=== PATIENT | female | born 1985 | race Caucasian/White ===

== ENCOUNTER 2021-07-13 10:18 | Outpatient (REF) | payer MEDICAID, SELFPAY ==
--- NOTE | ~2021-07-13 | XR_ITS ---
EXAMINATION: XR ANKLE, RIGHT CLINICAL INFORMATION: Pain COMPARISON: None TECHNIQUE: AP, lateral, and mortise views of the right ankle. FINDINGS: The bones and soft tissues are normal. No fracture. Alignment is anatomic. Joint spaces are maintained. No joint effusion. XR/XR ankle RT min 3V IMPRESSION: Unremarkable right ankle.
== END 2021-07-13 10:19 | disposition home or self-care (01) ==
LOC: HO.HOSX 10:18
PROVIDERS: Visit Provider Physician Assistant
DX: S90.01XA Contusion of right ankle, initial encounter (principal)
CPT/HCPCS: 73610; 99202

== ENCOUNTER 2021-08-02 17:52 | Outpatient (REF) | payer OTHER, MEDICAID, SELFPAY ==
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
== END 2021-08-02 17:53 | disposition home or self-care (01) ==
LOC: HO.MRI 17:52
PROVIDERS: Visit Provider Physician Assistant
DX: S90.01XA Contusion of right ankle, initial encounter (principal)
CPT/HCPCS: 73721

== ENCOUNTER 2021-11-29 11:54 | Emergency (ER) | payer MEDICAID, SELFPAY ==
[2021-11-29 13:01] VITALS: BP 127/73; PULSE 86; RESP 18; TEMP 37; O2SAT 98; BMI 24.7
--- NOTE | 2021-11-29 15:39 | ED_ITS ---
HPI - Wound/Laceration General Chief Complaint: Wound/Laceration Stated Complaint: Eyebrow lac Time Seen by Provider: 11/29/21 15:39 Source: patient Mode of arrival: ambulatory Limitations: no limitations History of Present Illness HPI narrative: patient stood up and cut her right eyebrow on a cabinet Onset (ago): hour(s) Location: face Related Data Home Medications Medication Instructions Recorded Confirmed No Known Home Meds 07/13/21 07/13/21 Allergies Allergy/AdvReac Type Severity Reaction Status Date / Time No Known Allergies Allergy Unverified 01/20/20 19:36 [No Known Allergies*] Review of Systems Constitutional: Constitutional: Reports no additional constitutional complaints Eyes: Eyes: Reports no additional eye complaints ENT: Denies dizziness Cardiovascular: Cardiovascular: Reports no additional cardiovascular complaints Respiratory: Respiratory: Reports as per HPI Gastrointestinal: Gastrointestinal: Reports no additional gastrointestinal complaints Genitourinary: Genitourinary: Reports no additional female genitourinary complaints Musculoskeletal: Musculoskeletal: Reports no additional musculoskeletal complaints Integumentary/Breasts: Skin/Breast: Denies rash Neurologic: Reports system reviewed and no additional complaints, except as documented, Denies dizziness and Denies Sensory deficit (Neuro) Psychiatric: Psychiatric: Denies anxiety Physical Exam Vital Signs: Vital Signs: Last Vital Signs Temp 98.6 F 11/29/21 13:01 Pulse 86 11/29/21 13:01 Resp 18 11/29/21 13:01 BP 127/73 11/29/21 13:01 Pulse Ox 98 11/29/21 13:01 O2 Del Method 11/29/21 13:01 BMI result Body Mass Index 24.7 Const: General: healthy appearing Nutritional Appearance: average body hab itus Orientation/consciousness: oriented to person and patient oriented x3 Limitations: no limitations HEENT: Head: Yes normal to inspection Ears: external ears normal General nose exam: Normal external nose present Mouth: Normal oral and palatal mucosa present and oropharynx normal Throat: Yes posterior oropharynx normal Eyes: General: appearance normal, both eyes and all related structures Neck: Other: supple Neck: Yes normal visual inspection Chest: Chest palpation & inspection: normal inspection of the chest Resp: Auscultation: clear to auscultation bilaterally Cardio: Jugular venous distension: no JVD Rate: regular rate Rhythm: regular rhythm Heart sounds: S1 normal heart sound present and S2 normal heart sound present GI: Inspection: Yes normal to inspection Palpation (GI): Soft to palpation, nontender and No hepatosplenomegaly present Auscultation: normal bowel sounds : General: Yes no CVA tenderness Back/Spine/Pelvis: Back: no CVA tenderness Skin: Other: right eyebrow with 2cm laceration Neuro: General: oriented to person and patient oriented x3 Cranial nerves: Yes CN's II-XII intact bilaterally Motor exam (neuro): 5/5 motor strength present throughout Sensory Exam: No Sensory deficit (Neuro) Extrem: General: Yes normal to inspection Psych: Appearance: grossly normal Procedures Procedure Narrative Procedure Narrative: right eyebrow dermabonded Discharge Plan Discharge Clinical Impression: Laceration Patient Disposition: Home, Self-Care Additional Instructions: the dermabond with peel off when the wound is healed. Prescriptions: No Action No Known Home Meds Referrals: [facility] [Primary Care Provider] - 10 days
== END 2021-11-29 16:27 | disposition home or self-care (01) ==
LOC: HO.ED 16:21
PROVIDERS: Emergency Provider Emergency Medicine
DX: S01.111A Laceration without foreign body of right eyelid and periocular area, initial encounter (principal); Y28.9XXA Contact with unspecified sharp object, undetermined intent, initial encounter; Y93.9 Activity, unspecified; Y92.9 Unspecified place or not applicable; Y99.9 Unspecified external cause status
CPT/HCPCS: 12011; 99281; 99283

== ENCOUNTER 2022-08-26 16:55 | Outpatient (REF) | payer MEDICAID, SELFPAY ==
--- NOTE | ~2022-08-26 | XR_ITS ---
EXAMINATION: XR ANKLE, RIGHT CLINICAL INFORMATION: Chronic ankle pain COMPARISON: Ankle radiographs 07/13/2021 TECHNIQUE: AP, lateral, and mortise views of the right ankle. FINDINGS: No acute fracture or dislocation. Joint spaces are maintained. Soft tissues are unremarkable. No joint effusion. XR/XR ankle RT min 3V IMPRESSION: No acute osseous abnormality.
--- NOTE | ~2022-08-26 | XR_ITS ---
EXAMINATION: XR SHOULDER, LEFT CLINICAL INFORMATION: Reason for Exam SHOULDER PAIN COMPARISON: None TECHNIQUE: Four views of the shoulder. FINDINGS: No acute fracture or dislocation. 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 Minimal degenerative changes of the acromioclavicular joint with degenerative spurring. Glenohumeral joint space is maintained. Soft tissues are unremarkable. XR/XR shoulder LT min 2V IMPRESSION: 1. 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 2. Minimal degenerative changes of the acromioclavicular joint with degenerative spurring.
== END 2022-08-26 16:56 | disposition home or self-care (01) ==
LOC: HO.XRAY 16:55
PROVIDERS: Visit Provider Emergency Medicine
DX: M25.512 Pain in left shoulder (principal); M25.571 Pain in right ankle and joints of right foot
CPT/HCPCS: 73030; 73610

== ENCOUNTER → 2022-10-10 13:37 | Outpatient (BNVA) | payer MEDICAID, SELFPAY | PROVIDERS: Visit Provider Orthopaedic Surgery | DX: M75.52 Bursitis of left shoulder (principal) | CPT/HCPCS: 20610; 99202; J1100 ==

== ENCOUNTER 2022-11-19 10:16 | Outpatient (REF) | payer MEDICAID, SELFPAY ==
[2022-11-19 11:38] LABS: MANUAL DIFF FLAG NO
[2022-11-19 11:55] LABS: Basophils Percent Auto 0.5 % (0-2); Eosinophils Percent Auto 0.5 % (0-4); Hematocrit 43.2 % (37.0-47.0); Hemoglobin 14.8 g/dl (12.0-16.0); Imm Gran Abs Auto 0.03 X10*3/uL (0.00-0.03); Imm Gran Pct Auto 0.4 % (0.0-0.4); Lymphocytes Absolute Auto 2.7 X10*3/uL (1.2-4.9); Lymphocytes Percent Auto 32.5 % (20-40); Mean Corpuscular HGB Conc 34.3 g/dl (31.0-35.0); Mean Corpuscular Hemoglobin 29.8 pg (27.0-33.0); Mean Corpuscular Volume 86.9 fL (80.0-98.0); Mean Platelet Volume 9.7 fL (9.4-12.3); Monocytes Absolute Auto 0.4 X10*3/uL (0.1-1.2); Monocytes Percent Auto 4.4 % (2-11); Neutrophils Absolute Auto 5.2 x10*3/uL (2.0-8.3); Neutrophils Percent Auto 61.7 % (45-73); Platelet Count 301 X10*3/uL (160-400); Red Blood Count 4.97 X10*6/uL (4.20-5.50); Red Cell Distribution Width 11.4 % (11.0-16.0); White Blood Count 8.4 X10*3/uL (4.8-10.8)
[2022-11-19 12:34] LABS: Erythrocyte Sedimentation Rate 5 MM/HR (0-20)
[2022-11-19 12:54] LABS: Alanine Aminotransferase 8 U/L (0-31); Albumin Level 4.5 g/dL (3.5-5.0); Alkaline Phosphatase 43 U/L (39-117); Anion Gap 12 (12-20); Aspartate Amino Transferase 12 U/L (5-31); Bilirubin Direct 0.3 mg/dL (0.0-0.5); Bilirubin Total 0.8 mg/dL (0.0-1.0); Blood Urea Nitrogen 15 mg/dL (9-16); C Reactive Protein < 0.10 mg/dL (< or = 0.50); Calcium 9.8 mg/dL (8.4-10.2); Carbon Dioxide 27 mmol/L (22-29); Chloride 104 mmol/L (96-108); Cholesterol 213 mg/dL; Estimated Glomerular Filt Rate > 60; Glucose Random 82 mg/dL (60-115); HDL Cholesterol 64 mg/dL; LDL Cholesterol Calculated 130 mg/dl; Potassium 3.8 mmol/L (3.3-5.1); Sodium 139 mmol/L (135-145); Total Protein 7.8 g/dL (6.5-8.0); Triglycerides 95 mg/dL
[2022-11-19 13:05] LABS: HIV AB/AG Nonreactive (Nonreactive); HIV Num 1 0.07 S/CO (0.00-0.99)
[2022-11-19 13:08] LABS: ~HepC Num1 0.09 S/CO (0.00-0.79); ~Hepatitis C Antibody Nonreactive (Nonreactive)
[2022-11-19 13:11] LABS: TSH reflex Free T4 0.57 uIU/mL (0.32-4.0)
[2022-11-19 13:12] LABS: Rheumatoid Factor < 13.0 IU/mL (<15.0)
[2022-11-19 13:24] LABS: Vitamin B12 461 pg/mL (200-900)
[2022-11-21 17:53] LABS: Homocysteine 10.1 umol/L (<10.4)
[2022-11-24 16:42] LABS: Methylmalonic Acid 201 nmol/L (87-318)
[2022-11-25 12:08] LABS: Anti Nuclear Antibody Screen NEGATIVE (NEGATIVE)
== END 2022-11-19 10:17 | disposition home or self-care (01) ==
LOC: HO.HHCL 10:16
PROVIDERS: Visit Provider Internal Medicine
DX: Z11.4 Encounter for screening for human immunodeficiency virus [HIV] (principal); R20.0 Anesthesia of skin; R20.2 Paresthesia of skin; R21 Rash and other nonspecific skin eruption; R53.82 Chronic fatigue, unspecified; M25.50 Pain in unspecified joint
CPT/HCPCS: 36415; 80048; 80061; 80076; 82607; 82746; 83090; 83921; 84443; 85025; 85652; 86038; 86140; 86431; 86803; 87389

== ENCOUNTER 2023-12-29 13:09 | Outpatient (REF) | payer MEDICAID, SELFPAY ==
--- NOTE | ~2023-12-29 | XR_ITS ---
EXAMINATION: XR ANKLE, LEFT CLINICAL INFORMATION: Left ankle pain. COMPARISON: None available. TECHNIQUE: AP, lateral, and mortise views of the left ankle. FINDINGS: No fracture. Alignment is anatomic. No erosions. Joint spaces are maintained. Soft tissues are normal. XR/XR ankle LT min 3V IMPRESSION: Unremarkable examination. Electronically signed by: Jose Gayle MD 01/02/2024 10:49 AM EDT
== END 2023-12-29 13:10 | disposition home or self-care (01) ==
LOC: HO.HHCX 13:09
PROVIDERS: Visit Provider General Practice
DX: M25.572 Pain in left ankle and joints of left foot (principal)
CPT/HCPCS: 73610

== ENCOUNTER 2024-03-30 13:58 | Outpatient (REF) | payer MEDICAID, SELFPAY ==
--- NOTE | ~2024-03-30 | XR_ITS ---
EXAMINATION: XR SHOULDER, LEFT CLINICAL INFORMATION: ongoing shoulder pain COMPARISON: 08/26/2022 TECHNIQUE: AP external rotation, Grashey, scapular Y, and axillary views of the left shoulder. FINDINGS: No fracture or malalignment. Supraspinatus and infraspinatus calcific tendinitis, similar to previous. The acromioclavicular joint is normal. XR/XR shoulder LT min 2V IMPRESSION: Supraspinatus and infraspinatus calcific tendinitis, similar to previous. Electronically signed by: Erwin Iniguez MD 03/31/2024 02:39 PM GUIDO
== END 2024-03-30 13:59 | disposition home or self-care (01) ==
LOC: HO.HHCX 13:58
PROVIDERS: Visit Provider Nurse Practitioner
DX: M25.512 Pain in left shoulder (principal); G89.29 Other chronic pain
CPT/HCPCS: 73030

== ENCOUNTER 2024-06-28 13:55 | Outpatient (REF) | payer MEDICAID, SELFPAY ==
--- OUTSIDE RECORDS SUMMARY | 2024-06-28 16:01 | XMS_ITS | Clinical Summary ---
Author Organization [facility] Address [id number] [place] [id number] Care Team Providers Care Government Affairs Specialist Name Role Phone Unavailable Primary Care Provider Unavailabl e Social History Tobacco Use Types Packs/Day Years Used Date Smoking Tobacco: Never Assessed Comments Unknown Sex and Gender Information Value Date Recorded Sex Assigned at Not on file Legal Sex Female 5:20 AM EST Gender Identity Not on file Sexual Orientation Not on file Plan of Treatment Health Maintenance Due Date Last Done Comments DTaP,Tdap,and Td Vaccines (1 - Tdap) 2004 Hepatitis B Vaccines (1 of 3 - 19+ 3-dose series) 2004 Cervical Cancer Screening: P ap Smear 2006 Depression Screening 04/07/2022 HIV Screening 04/07/2022 Hepatitis C Screening 04/07/2022 Social Influencers of Health Screening 04/07/2022 COVID-19 Vaccine (2023-2 5 season) 2024 Influenza Vaccine (#1) 2024 HIB Vaccines Aged Out No longer eligi ble based on patient's age to complete this topic HPV Vaccines Aged Out No longer eligi ble based on patient's age to complete this topic Hepatitis A Vaccines Aged Out No long er eligible based on patient's age to complete this topic IPV Vaccines Aged Out No longer eligi ble based on patient's age to complete this topic MMR Vaccines Aged Out No longer eligi ble based on patient's age to complete this topic Meningococcal ACWY Vaccine Aged Out N o longer eligible based on patient's age to complete this topic Meningococcal B Vacine Aged Out No lo nger eligible based on patient's age to complete this topic Pneumococcal Vaccine: Pediat rics (0 to 5 Years) and At-Risk Patients (6 to 64 Years) Aged Out No longer eligible b ased on patient's age to complete this topic RSV Immunization Patients Un rachel 20 months Aged Out No longer eligible b ased on patient's age to complete this topic Varicella Vaccines Aged Out No longer eligible based on patient's age to complete this topic
[2024-07-06 10:52] LABS: HPV Genotype 16 Negative (Negative); HPV Genotype 18 Negative (Negative); HPV High Risk Negative (Negative)
== END 2024-06-28 13:56 | disposition home or self-care (01) ==
LOC: HO.HHCLNP 13:55
PROVIDERS: Visit Provider Internal Medicine
DX: Z12.4 Encounter for screening for malignant neoplasm of cervix (principal); Z11.51 Encounter for screening for human papillomavirus (HPV)
CPT/HCPCS: 87626; 88175

== ENCOUNTER 2024-08-02 09:54 | Outpatient (AMB) | payer MEDICAID, SELFPAY ==
--- NOTE | 2024-08-02 10:13 | A.OFFVIS_ITS ---
Intake Visit Reasons: OV - Left Shoulder Bursitis Intake Note: Marina is a 38 year old right hand dominant female who presents today for a follow up of her left shoulder bursitis. At her last visit on 10/10/22 the left shoulder was injected and she was given a Rx for Ibuprofen and Physical therapy. She complains today of bilateral shoulder pain. 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 She describes pain all the time in a subdeltoid distribution. I have seen her in the past for left shoulder bursitis. She states that that was fine prior to seeing me today. She also describes some numbness and tingling in her fingers and neck pain and bilateral trapezius pain but she is seeing someone for that and starting physical therapy. Physical Exam Extrem Other: Left shoulder with 35/90/130/S1 Positive Gao and Neer Negative empty can Negative [place] Assessment & Plan Assessment & Plan (1) Painful arc syndrome of left shoulder: Code(s): M75.102 - Unspecified rotator cuff tear or rupture of left shoulder, not specified as traumatic Category: Medical Plan: This is a 38-year-old with a workplace injury and now left shoulder pain. She states the pain is present constantly but especially with overhead activities and while sleeping. She states the injection I gave her several years ago was not particularly helpful and does not want that at this time. Given this I recommend a referral to physical therapy. She can see me for follow up in 2 months. Coding Level of Care Code Est Pt Level 3 (60616) Diagnoses Painful arc syndrome of left shoulder M75.102
--- OUTSIDE RECORDS SUMMARY | 2024-08-02 10:58 | XMS_ITS | Clinical Summary ---
Author Organization [facility] Address [address] [place] [phone] Care Team Providers Care Jboss Architect Name Role Phone Unavailable Primary Care Provider [...]
--- OUTSIDE RECORDS SUMMARY | 2024-08-02 10:58 | XMS_ITS | Encounter Summary ---
Author Organization [facility] Address [address] [place] [address] Care Team Providers Care Guest Room Inspector Name Role Phone Meghan Dickey RELIEF MANAGER Primary Care Provider [phone] Heather Marcus MD Primary Care Provide r Maryuri Elise RN Unavailable [phone] Encounter Details Date Type Department Care Team (Late st Contact Info) Description 08/30/2022 Orders Only [facility] PEDS [address], [place] [phone] Brenna Sanchez MD [address] [place] [address] Social History Tobacco Use Types Packs/Day Years Used Date Smoking Tobacco: Never Passive Smoke Exposure: Never Smokeless Tobacco: Never Alcohol Use Standard Drinks/Week Comments Never 0 (1 standard drink = 0.6 oz pur e alcohol) Comments Unknown Sex and Gender Information Value Date Recorded Sex Assigned at Female 03/04/2022 10:36 AM EDT Legal Sex Female 10:36 AM EDT Gender Identity Female 03/04/2022 10:36 AM EDT Sexual Orientation Straight 03/04/2022 10 :36 AM EDT COVID-19 Exposure Response Date Recorded In the last 10 days, have yo u been in contact with someone who was confirmed or suspected to have Coronavirus/COVID-19? No / Unsure 08/26/2022 1:42 PM EDT documented as of this encounter Plan of Treatment Upcoming Encounters Date Type Department Care Team (Late st Contact Info) Description 08/17/2024 3:15 PM EDT Office Visit [facility] MEDICINE [address] [place] [address] Heather Marcus MD [address] [place] [address] documented as of this encounter Visit Diagnoses Not on filedocumented in this encounter Care Teams Guest Room Inspector Relationship Specialty Start Date End Date Meghan Dickey FNP PCP - General Family Medicine 04/02/22 10/23/22 Heather Marcus MD [address] [place] [address] PCP - General Internal Medicine 11/12/22 Maryuri Elise RN [address] [place] [phone] Surgeon/PresidentCut Off [employer]yer [employer] 06/07/24 documented as of this encounter
--- OUTSIDE RECORDS SUMMARY | 2024-08-02 10:58 | XMS_ITS | Encounter Summary ---
Author Organization [facility] Address [address] [place] [address] Care Team Providers Care Business Analyst Intern Name Role Phone Heather Marcus MD Primary Care Provide r Maryuri Elise RN Unavailable [phone] Reason for Visit * Reason Comments Care Coordination SDOH Encounter Details Date Type Department Care Team (Latest Contact Info) Description 07/29/2024 Patient Outreach [facility] MEDICINE [address] [place], [place] [phone] Heather Marcus MD [address] [place], [place] [phone] Care Coordination (SDOH) Social History Tobacco Use Types Packs/Day Years Used Date Smoking Tobacco: Never Passive Smoke Exposure: Never Smokeless Tobacco: Never Alcohol Use Standard Drinks/Week Comments Never 0 (1 standard drink = 0.6 oz pur e alcohol) Alcohol Answer Date Recorded Frequency of Alcohol Consumption Not on file 02/05/2024 Average Number of Drinks Not on file 024 Frequency of Binge Drinking Not on file 07/2023 Score 0 02/05/2024 Depression Answer Date Recorded Patient Health Questionnaire-9 Score 0 02/05/2024 Patient Health Questionnaire-9 Score 0 02/05/2024 Last PHQ-9: Questionnaire Data Not on file 1 Housing Stability Answer Date Recorded What is your housing situation today? I have kamari mason 02/05/[address] you li ve. Do you have problems with any of the following? None of the above 02/05/2024 Food Insecurity Answer Date Recorded Within the past 12 months, y ou worried that your food would run out before you got money to buy more: Never True 02/05/2024 Within the past 12 months,th e food you bought just didn't last and you didn't have enough money to get more: Never True 07/2023 Transportation Answer Date Recorded In the past 12 months, has l ack of transportation kept you from medical appts, meetings, work or from getting things needed for daily living? No 02/05/2024 Utilities Answer Date Recorded In the past 12 months, has t he electric, gas, oil or water company threatened to shut off services in your home? No 02/05/2024 Depression Answer Date Recorded Patient Health Questionnaire-2 Score 0 02/05/2024 Internet Access Answer Date Recorded Internet Access Q1 No 02/05/2024 Internet Access Q2 I do not want or need it 07/2023 Comments Unknown Sex and Gender Information Value Date Recorded Sex Assigned at Female 03/04/2022 10:36 AM EDT Legal Sex Female 10:36 AM EDT Gender Identity Female 03/04/2022 10:36 AM EDT Sexual Orientation Straight 03/04/2022 10 :36 AM EDT documented as of this encounter Progress Notes * Shazia Osborne - 07/29/2024 10:54 AM EDT CHW Shazia Osborne/ADELSO Elise RN placed outbound call to patient to follow up on SDOH needs.Patient's name, and address confirmed. Patient states is doing well. Patient stated she is happy because her FS were raised, and she is not struggling with food insecurity anymore. No other SDOH needed at this time. No further questions or concerns. CHW reinforced direct contact information or [facility] for any additional questions or concerns and extended clinic hours on Mondays and Wednesdays, and Walk-In Urgent Care Located in [facility]. Patient provided with after-hours line for [facility], , which offer night time triage service and option to transfer to motion picture equipment supervisor provider if needed. Patient verbalizes understanding, and able to repeat back to speech writer. A follow up call willbe placed within 10 days, patient agrees with plan. documented in this encounter Plan of Treatment Upcoming Encounters Date Type Department Care Team (Late st Contact Info) Description 08/17/2024 3:15 PM EDT Office Visit [facility] MEDICINE [address] [place] [address] Heather Marcus MD [address] [place] [phone] documented as of this encounter Visit Diagnoses Not on filedocumented in this encounter Additional Health Concerns Assessment Noted Time PHQ-9 Depression Total Score: 0 02/05/20 24 3:46 PM EDT documented as of this encounter Care Teams Business Analyst Intern Relationship Specialty Start Date End Date Heather Marcus MD [address] [place] [address] PCP - General Internal Medicine 11/12/22 Maryuri Elise RN [address] [place] [address] Surveillance Sensor OfficerYarn Bleaching Machine Operator 06/07/24 documented as of this encounter
--- OUTSIDE RECORDS SUMMARY | 2024-08-02 10:58 | XMS_ITS | Encounter Summary ---
Author Organization [facility] Address [address] [place] [address] Care Team Providers Care Chemical Pathologist Name Role Phone Heather Marcus MD Primary Care Provide r Maryuri Elise RN Unavailable [phone] Reason for Visit * Reason Comments Med Refill Encounter Details Date Type Department Care Team (Late st Contact Info) Description 02/05/2023 Refill [facility] MED[facility]INE [address] [place] [address] Heather Marcus MD [address] [place], [place] [phone] Fibromyalgia; Anxiety with depression Social History Tobacco Use Types Packs/Day Years Used Date Smoking Tobacco: Never Passive Smoke Exposure: Never Smokeless Tobacco: Never Alcohol Use Standard Drinks/Week Comments Never 0 (1 standard drink = 0.6 oz pur e alcohol) Depression Answer Date Recorded Patient Health Questionnaire-9 Score 18 01/14/2023 Depression Answer Date Recorded Patient Health Questionnaire-2 Score 4 01/14/2023 Comments Unknown Sex and Gender Information Value Date Recorded Sex Assigned at Female 03/04/2022 10:36 AM EDT Legal Sex Female 10:36 AM EDT Gender Identity Female 03/04/2022 10:36 AM EDT Sexual Orientation Straight 03/04/2022 10 :36 AM EDT documented as of this encounter Plan of Treatment Upcoming Encounters Date Type Department Care Team (Late st Contact Info) Description 08/17/2024 3:15 PM EDT Office Visit [facility] MED[facility]INE [address] [place] [address] Heather Marcus MD [address] [place] [address] documented as of this encounter Visit Diagnoses Diagnosis Fibromyalgia Unspecified myalgia and myositis Anxiety with depression documented in this encounter Additional Health Concerns Assessment Noted Time PHQ-9 Depression Total Score: 18 023 11:45 AM EDT documented as of this encounter Care Teams Chemical Pathologist Relationship Specialty Start Date End Date Heather Marcus MD [address] [place] [address] PCP - General Internal Medicine 11/12/22 Maryuri Elise RN [address] [place] [phone] Quality Control AuditorBooker 06/07/24 documented as of this encounter
--- OUTSIDE RECORDS SUMMARY | 2024-08-02 10:58 | XMS_ITS | Encounter Summary ---
Author Organization [facility] Address [address] [place] [address] Care Team Providers Care Food And Beverage Server Name Role Phone Heather Marcus MD Primary Care Provide r Maryuri Elise RN Unavailable [phone] Reason for Visit * Reason Onset Date Comments Care Management 07/29/2024 C3CM- f/u call Encounter Details Date Type Department Care Team ([facility] st Contact Info) Description 07/29/2024 Telephone [facility] MEDICINE [address] [place] [phone] Heather Marcus MD [address] [place], [place] [phone] Care Management (C3CM- f/u call) Social History Tobacco Use Types Packs/Day Years [...] AM EDT documented as of this encounter Miscellaneous Notes * Telephone Encounter - Sabine Chaves RN - 07/29/2024 1:17 PM EDT TC placed to pt., pt. Agrees to r/s f/up appt. With PCP to 08/17/24 at 3:15pm * Telephone Encounter - Maryuri Elise RN - 07/29/2024 10:54 AM EDT CM Maryuri Elise RN and CHW Shazia Osborne placed outbound call to patient. Patient's name, and address confirmed. Patient states is doing well with no recent illnesses or emergency room visits.Patient states she is doing well emotionally. She states she was not aware that she missed the visit on 07/12 with BH. CM/ CHW provided patient with BH contact information and advised that she contactthe office directly to reschedule the visit. She agrees. Per patient, was not aware that she missedf/u with PCP on 07/16. CM advised a message will be sent to team to outreach patient with a new visit. She agrees. Per patient, attending visits with PT as scheduled. She is aware of her scheduled visit with Ortho on 08/02 at 10:15am and denies any barriers to attending. No further questions or concerns. CM reinforced direct contact information or CHW for any additional questions or concerns. Education provided on Walk-In Urgent Care located in [facility]. Patient provided with after-hours line for [facility], , which offer night time triage service and option to transfer to telecommunications support provider if needed. Patient verbalizes understanding, and able to repeat back to law writer. A follow up call will be placed within 10 days, patientagrees with plan. documented in this encounter Plan of Treatment Upcoming Encounters Date Type Department Care Team ([facility] st Contact Info) Description 08/17/2024 3:15 PM EDT Office Visit [facility] MEDICINE [address] [place] [phone] Heather Marcus MD [address] [place] [phone] documented as of this encounter Visit Diagnoses Not on filedocumented in this encounter Additional Health Concerns Assessment Noted Time PHQ-9 Depression Total Score: 0 02/05/20 24 3:46 PM EDT documented as of this encounter Care Teams Food And Beverage Server Relationship Specialty Start Date End Date Heather Marcus MD [address] [place] [phone] PCP - General Internal Medicine 11/12/22 Maryuri Elise RN [address] [place] [phone] It Telecom TechnicianAdult Education Teacher 06/07/24 documented as of this encounter
--- OUTSIDE RECORDS SUMMARY | 2024-08-02 10:59 | XMS_ITS | Clinical Summary ---
Author Organization [employer] Address [address] [place] [address] Care Team Providers Care Linux Systems Administrator Name Role Phone Heather Marcus MD Primary Care Provide r Maryuri Elise RN Unavailable [phone] Allergies No known active allergies Medications * This document contains information received from the source organization and may not represent a complete record from that organization. omeprazole (PriLOSEC) [address] capsuleIndicati ons:Heartburn Take 1 capsule (20 mg) by mouth before breakfast. Do not crush or chew. 90 capsule 1 3 Active Diclofenac Sodium (Voltaren) 1 % gel Apply thin layer to affected area BID 60 g 3 3 Active sodium chloride ([place] Nasal [place]) 0.65 % nasal sprayIndication s:Seasonal allergic rhinitis due to pollen 1-2 sprays on each nostril every 2-3 hours as needed for nasal congestion 30 mL 1 3 Active DULoxetine (Cymbalta) [address] capsuleIndicati ons:Fibromyalgi a,Anxiety with depression Take 1 capsule (30 mg) by mouth Once per day. Do not crush or chew. 30 capsule 3 4 02/05/20 25 Active lidocaine (Lidoderm) 5 % patchIndication s:Chronic left shoulder pain Apply 1 patch topically Once per day. Remove & discard patch within 12 hours or as directed by MD. 30 patch 1 4 Active cyclobenzaprine (Flexeril) 10 MG tablet Take 1 tablet (10 mg) by mouth at bedtime. 30 tablet 5 Active meloxicam (Mobic) 15 MG tablet Take 1 tablet (15 mg) by mouth if needed each day for mild pain or moderate pain. 30 tablet 5 06/01/19 26 Active cetirizine (ZyrTEC) 10 MG tabletIndicatio ns:Seasonal allergic rhinitis due to pollen TAKE 1 TABLET BY MOUTH IF NEEDED EACH DAY FOR ALLERGIES OR RHINITIS. 90 tablet 5 Active Ketotifen Fumarate 0.035 % solution Administer 1 drop into affected eye(s) if needed in the morning and at bedtime (eye redness, itching). 10 mL 5 Active albuterol 108 (90 Base) MCG/ACT inhaler Inhale 2 puffs every 4 (four) hours if needed for wheezing or shortness of breath. 18 g 1 5 06/28/19 26 Active Spacer/Aero-Hol ding Chambers (OptiChamber Dorene) misc 1 each every 4 (four) hours if needed (asthma). 1 each 5 Active fluticasone (Flonase) 50 MCG/ACT nasal sprayIndication s:Seasonal allergic rhinitis due to pollen ADMINISTER 1 SPRAY INTO EACH NOSTRIL IF NEEDED EACH DAY FOR RHINITIS OR ALLERGIES. SHAKE GENTLY BEFORE FIRST USE, PRIME PUMP. AFTER USE, CLEAN TIP AND REPLACE CAP. 48 mL 5 Active Active Problems Problem Noted Date Diagnosed Date Encounter for Papanicolaou smear of cervix 06/28 Assessment & Plan (06/28/2024 10:41 AM EST): Pap and pelvic exam done today, patient will be contacted with results Cervical paraspinal muscle spasm 06/01/2024 Assessment & Plan (06/01/2024 5:04 PM EST): Advised to apply heat to affected area, take meloxicam daily x 5 days then as needed. Use Tylenol every 6 hours as needed breakthrough pain and Flexeril nightly x 1 week Referred to PT, she is advised to to follow-up with Worker's Compensation provider and reconciliate orders Advised her to cut down on working hours and workload this week then go back to work full-time with reduced workload for the next 2 weeks or until she is seen by physical therapy. Advised to follow-up with PCP Acute left ankle pain 02/05/2024 Bursitis of left shoulder 02/05/2024 Nausea 02/12/2023 Fibromyalgia 01/14/2023 Assessment & Plan (02/05/2024 4:39 PM EDT): Patient was educated about multidisciplinary approach for her condition, it was advise cardiovascular exercise, maintain hydration, treat anxiety/depression and take medications as directed Assessment & Plan (02/12/2023 9:56 AM EDT): Extensive discusion today about starting to do exercise Patient will continue duloxetine 30mg daily RTC 3 months Assessment & Plan (01/14/2023 4:45 PM EDT): Patient was educated about multidisciplinary approach for her condition, it was advise cardiovascular exercise, maintain hydration, treat anxiety/depression and take medications as directed I will start her on duloxetin 30mg daily Current moderate episode of major depressive disorder without prior episode 01/14/2023 Assessment & Plan (01/14/2023 4:46 PM EDT): BHN was call today assessment done I started patient on cymbalta for fibromyalgia this will also help with anxiety/depression Assessment & Plan (01/14/2023 12:49 PM EDT): Assessment: Patient with anhedonia, low mood, sleep disturbance, fatigue, over eating, low self-esteem, diminished ability to concentrate, diminished ability with motor skills, isolation, not speaking with others, guilt/shame, finger picking, anxiousness, persistent worry, trouble relaxing, restlessness, irritability and fearfulness. Factors contributing to her symptoms are Hx of trauma in both childhood and adulthood, financial struggle as she had to stop working due to she hurt her left arm, new dxs of fibromyalgia, relationship stress with daughter. Patient will benefit from Individual therapy. At this time Marina Armendariz meets criteria for Visit Diagnoses: Problem List Items Addressed This Visit Other Current moderate episode of major depressive disorder without prior episode (CMS/HCC) Severe anxiety Patient ready to address current needs Yes Strengths include willing to engage in services PLAN: 1. Follow up with [facility]: Not recommended for follow-up 2. Patient goal is to improve mental health and functionality. 3. Behavioral Recommendations a. Ind. Therapy referral will be submitted b. Use of coping skills as recommended c. [facility] contact number for support. Severe anxiety 01/14/2023 Polyarthralgia 11/19/2022 Chronic fatigue 11/19/2022 Rash 11/19/2022 Numbness and tingling 11/19/2022 Chronic left shoulder pain 11/19/2022 Low TSH level 09/23/2018 Encounters Date Type Department Care Team Description 07/29/2024 Patient Outreach [facility] MEDICINE [address] [place] [phone] Heather Marcus MD Care Coordination (SDOH) 07/29/2024 Telephone [facility] MEDICINE [address] [place] [phone] Heather Marcus MD Care Management (C3CM- f/u call) 07/16/2024 Telephone [facility] MEDICINE [address] [place] [phone] Heather Marcus MD No Show 07/16/2024 Population Health Risk Score Community Care [facility] (C3) Department [address] [place] [address] [phone] Provider, Population Health Generic 07/14/2024 Telephone [facility] MEDICINE [address] [place] [phone] Heather Marcus MD Care Management (C3CM- f/u call) 07/02/2024 Telephone [facility] MEDICINE [address] [place] [phone] Heather Marcus MD Results 07/02/2024 Patient Outreach [facility] MEDICINE [address] [place] [phone] Heather Marcus MD Care Coordination (SDOH f/u) 07/02/2024 Telephone [facility] MEDICINE [address] [place] [phone] Heather Marcus MD Care Management ([facility]- f/u call) 06/29/2024 Refill [facility] WALK-IN [address] [address] Trevor Waite MD Seasonal allergic rhinitis due to pollen 06/28/2024 3:15 PM EST Procedure Visit [address] [address] Heather Marcus MD Encounter for Papanicolaou smear of cervix (Primary Dx); Chronic left shoulder pain 06/28/2024 9:40 AM EST [facility] [address] [address] Trevor Waite MD Influenza A (Primary Dx); Seasonal allergic rhinitis due to pollen 06/28/2024 Orders Only [address] [phone] Heather Marcus MD 06/28/2024 Travel 06/27/2024 Travel 06/23/[address] [address] Heather Marcus MD Chart Prep 06/23/[address] [phone] Heather Marcus MD Care Management ([facility]- f/u call) 06/23/2024 Patient Outreach [address] [phone] Heather Marcus MD Care Coordination (SDOH) 06/15/2024 Patient Outreach [address] [address] Heather Marcus MD Care Coordination (SDOH) 06/07/2024 3:20 PM EST [facility] [address] [address] Anjali Fragoso ANP Acute cough (Primary Dx); Seasonal allergic rhinitis due to pollen 06/07/[address] [phone] Maryuri Elise RN Care Management ([facility]- initial assessment/ enrollment) 06/04/2024 Patient Outreach [facility] MEDICINE [address] [place] [phone] Heather Marcus MD Care Coordination (CM/CHW outreach) 06/01/2024 2:00 PM EST Office Visit [facility] [address] [place] [phone] Rosanna Catalan MD Cervical paraspinal muscle spasm (Primary Dx) 05/27/2024 Patient Outreach [facility] MEDICINE [address] [place] [address] [phone] Heather Marcus MD Care Coordination (CM/CHW outreach) 05/27/2024 Telephone [facility] MEDICINE [address] [place] [address] [phone] Maryuri Elise RN Care Management ([facility]- chart review) from Last 3 Months Immunizations Name Administration Dates Next Due Influenza injectable quadrivalent preservative f ree 02/18/2020,03/02/2019 Social History Tobacco Use Types Packs/Day Years Used Date Smoking Tobacco: Never Passive Smoke Exposure: Never Smokeless Tobacco: Never Tobacco Cessation:Counseling Given: Not Answered Alcohol Use Standard Drinks/Week Comments Never 0 [...] your housing situation today? I have kamari marlon 02/05/[address] you li [...] Orientation Straight 03/04/2022 10 :36 AM EDT Last Filed Vital Signs Vital Sign Reading Time Taken Comments Blood Pressure 129/80 06/28/2024 10:19 AM EST Pulse 82 06/28/2024 10:19 AM EST Temperature 36 ??C (96.8 ??F) 06/28/2024 10:19 AM EST Respiratory Rate 20 06/28/2024 10:19 AM EST Oxygen Saturation 97% 06/07/2024 2:29 PM EST Inhaled Oxygen Concentration - - Weight 65.4 kg (144 lb 3.2 oz) 06/28/2024 10:19 AM EST Height 157.5 cm (5' 2 ) 06/28/2024 10:19 AM EST Body Mass Index 26.37 06/28/2024 10:19 AM EST Plan of Treatment Upcoming Encounters Date Type Department Care Team (Late st Contact Info) Description 08/17/2024 3:15 PM EDT Office Visit [facility] MEDICINE [address] [place] [address] Heather Marcus MD [address] [place], [place] [phone] Health Maintenance Due Date Last Done Comments Family Planning (PISQ) 2000 DTaP/Tdap/Td Vaccines (1 - Tdap) 2004 Hepatitis B Vaccines (1 of 3 - 19+ 3-dose series) 2004 COVID-19 Vaccine ( - 2023-2 5 season) 2024 Influenza Vaccine (#1) 2024 , 03/02/2019 Alcohol/Substance Use Screening 02/04/2025 02/05/2024 Depression Screening 02/04/2025 02/05/2024, 02/05/2024 SDOH Screening 02/04/2025 02/05/2024 Tobacco Screening 06/28/2025 06/28/2024 Cervical Cancer Screening 06/28/2029 HPV/Cotest 06/28/2029 06/28/2024, 05/26/2019 Pap Smear 06/28/2029 06/28/2024 Zoster Vaccines (1 of 2) 10/29/2035 RSV Patients and Patients Aged 60 years or older (1 - 1-dose 75+ series) 2060 HIV Screening Completed 11/19/2022, 05/17/2019 Hepatitis C Screening Completed 11/19/2022 HIB Vaccines Aged Out No longer eligi [...] patient's age to complete this topic Meningococcal Vaccine Aged Out No gume bonnie eligible based on patient's age to complete this topic Pneumococcal Vaccine: Pediatrics (0 to 5 Years) and At-Risk Patients (6 to 49) Years) Aged Out No longer eligible b ased on patient's age to complete this topic RSV under 20 months Aged Out No longe r eligible based on patient's age to complete this topic Rotavirus Vaccines Aged Out No longer eligible based on patient's age to complete this topic Procedures Procedure Name Priority Date/Time Associated Diagnosis Comments PAP SMEAR Routine 06/28/2024 10:47 AM EST Encounter for Papanicolaou smear of cervix HPV DNA, LOW/HIGH RISK Routine 06/28/2024 10:47 AM EST POCT INFLUENZA B (ID NOW RAPID MOLECULAR) Routine 06/28/2024 9:48 AM EST Influenza A POCT INFLUENZA A (ID NOW RAPID MOLECULAR) Routine 06/28/2024 9:48 AM EST Influenza A POCT RAPID COVID ANTIGEN Routine 06/28/2024 9:48 AM EST Influenza A POCT INFLUENZA B (ID NOW RAPID MOLECULAR) Routine 06/07/2024 2:46 PM EST Acute cough POCT INFLUENZA A (ID NOW RAPID MOLECULAR) Routine 06/07/2024 2:46 PM EST Acute cough POCT RAPID COVID ANTIGEN Routine 06/07/2024 2:46 PM EST Acute cough HEPATITIS C ANTIBODY REFLEX Routine 11/19/2022 10:24 AM EDT HIV ANTIBODY/ANTIGEN ([place] D[facility]) Routine 11/19/2022 10:24 AM EDT from Last 3 Months or Most Recently Relevant to Health Maintenance Results * HPV DNA, Low/High Risk (06/28/2024 10:47 AM EST) HPV High Risk Negative Negative [facility] HPV Genotype 16 Negative Negative [facility] HPV Genotype 18 Negative Negative [facility] Comment:HPV testing performe d at [facility] (CLIA#[id number]), [address] [place] [address].Testing for HPV was performed using the Deandra NOEMÍ 6800system. The presence of HPV in the female genital tract isassociated with a number of diseases, including cervicalcarcinoma. The HPV DNA high risk pool tests for HPV 31, 33,35, 39, 45, 51, 52, 56, 58, 59, 66 and 68. The testing forHPV 16 and 18 genotypes has also been performed. A positiveresult indicates detection of nucleic acid sequences fromone or more subtypes, whereas a negative result indicatessuch sequences were not detected. 06/28/2024 10:4 7 AM EST 06/29/2024 7:10 AM EST us Heather Mcdermott MD LAB BLOOD ORDERABLES Final Result [facility] [address] [place] [phone] * Pap Smear (06/28/2024 10:47 AM EST) Swab 06/28/2024 10:4 7 AM EST 06/29/2024 7:10 AM EST Narrative [facility] - 07/01/2024 7:46 AM EST ----- ------- Name: Marina Armendariz ?Age/Sex: 38/F ? : 1985 Unit#: [id number] ?? Attend Dr: Heather Marcus MD ?Re06/28/24 ?Status: DEP REF ? Location: HO.HHCLNP ? Disch: ? ----- ------- SPEC : [id number] ? RECD: 06/29/24 ? STATUS: ??SOUT ? REQ NUM: [id number] ? RENEE: 06/28/24-7 ? SUBM DR: Heather Marcus MD ? ENTERED: ??06/29/24-757 ?SP TYPE: Pap Smr ?OTHR : ? ORDERED: ??Pap Smear ? Interpretation ?? Satisfactory for evaluation. ?? Negative for intraepithelial lesion or malignancy. ? HPV High Risk: ??Negative ? HPV Genotyping 16: ??Negative ?? HPV Genotyping 18: ??Negative ?Clinical Information LMP: Unknown date Previous PAP test: Unknown date, WNL ? Material Received ?? ThinPrep-Cervical ----- ------- Signed (signature on file) HUONG Wilson (ASCP) 07/01/24 0746 ? ----- ------- ? END OF REPORT ? Heather Mcdermott MD LAB CYTOLOGY ORDERABL ES Final Result Performing Organization Address [facility] [[email or web address]] de Phone Number [facility] [address] [place] [phone] * Influenza B (ID NOW Rapid Molecular) (06/28/2024 9:48 AM EST) Only the most recent of2 resultswithin the time period is included. Influenza B Negative Negative, Indeterminate [facility] Swab 06/28/2024 9:48 AM EST Trevor Waite MD POINT OF CARE TEST ENTER/EDIT OR DERABLES Final Result Performing Organization Address [facility] de Phone Number [facility] [address] [place] [phone] * (ABNORMAL) Influenza A (ID NOW Rapid Molecular) (06/28/2024 9:48 AM EST) Only the most recent of2 resultswithin the time period is included. Influenza A Positive( A) Negative, Indeterminate [facility] Swab 06/28/2024 9:48 AM EST Trevor Waite MD POINT OF CARE TEST ENTER/EDIT OR DERABLES Final Result Performing Organization Address [facility] Co de Phone Number [facility] [address] [place] [phone] * POCT Rapid COVID Ag (06/28/2024 9:48 AM EST) Only the most recent of2 resultswithin the time period is included. Rapid COVID Ag Negative [facility] Swab 06/28/2024 9:48 AM EST Trevor Waite MD POINT OF CARE TEST ENTER/EDIT OR DERABLES Final Result Performing Organization Address [facility] Co de Phone Number [facility] [address] [place] [phone] * Hepatitis C Antibody Reflex (11/19/2022 10:24 AM EDT) [facility] Hepatitis C Antibody Nonreactive Nonreactive [facility] Comment:Antibodies to HCV no t detected; does not exclude early acuteHCV infection. 11/19/2022 10:2 4 AM EDT 11/19/2022 11:33 AM EDT [facility] External Provider LAB BLO OD ORDERABLES Final Result Performing Organization Address [facility] [[email or web address]] de Phone Number [facility] [address] [place] [phone] * HIV Ab/Ag ([place] DP) (11/19/2022 10:24 AM EDT) [facility] HIV AB/AG Nonreactive Nonreactive [facility] Comment:HIV-1 p24 Ag and/or HIV-1/HIV-2 Ab not detected.A test result that is nonreactive does not exclude thepossibility of exposure to or infection with HIV-1 and/orHIV-2. Nonreactive results in this assay for individualswith prior exposure to HIV-1 and/or HIV-2 may be due toantigen and antibody levels that are below the limit ofdetection of this assay.[employer] Customer Service Specialist HIV Ag/Ab Combo assay result andsupplemental assay results should be interpreted inconjunction with the patient's clinical presentation,history and other laboratory results. If the results areinconsistent with clinical evidence, additional testing issuggested to confirm the result. 11/19/2022 10:2 4 AM EDT 11/19/2022 11:33 AM EDT [facility] External Provider LAB BLO OD ORDERABLES Final Result [facility] [address] [place] [phone] [phone] from Last 3 Months or Most Recently Relevant to Health Maintenance [facility] Care Teams Linux Systems Administrator Relationship Specialty Start Date End Date Heather Marcus MD [address] [place] [phone] PCP - General Internal Medicine 11/12/22 Maryuri Elise RN [address] [place] [phone] [employer] TenderAmbulatory Services Representative 06/07/24
== END 2024-08-02 11:35 | disposition home or self-care (01) ==
LOC: HO.HOS 09:55
PROVIDERS: PCP Internal Medicine; Visit Provider Orthopaedic Surgery
DX: M75.102 Unspecified rotator cuff tear or rupture of left shoulder, not specified as traumatic (principal)
CPT/HCPCS: 99213

== ENCOUNTER → 2024-08-02 09:54 | Outpatient (BNVA) | payer MEDICAID, SELFPAY | PROVIDERS: PCP Internal Medicine; Visit Provider Orthopaedic Surgery | DX: M75.102 Unspecified rotator cuff tear or rupture of left shoulder, not specified as traumatic (principal); M54.2 Cervicalgia | CPT/HCPCS: 99212 ==

== ENCOUNTER 2024-11-30 09:40 | Outpatient (REF) | payer MEDICAID, SELFPAY ==
--- OUTSIDE RECORDS SUMMARY | 2024-11-30 10:15 | XMS_ITS | Clinical Summary ---
Author Organization [facility] Address [id number] [place] [phone] Care Team Providers Care Senior Catering Sales Manager Name Role Phone Unavailable Primary Care Provider [...] Cervical Cancer Screening: P ap Smear 2006 HIV Screening 04/07/2022 Hepatitis C Screening 04/07/2022 Social Influencers of Health Screening 04/07/2022 COVID-19 Vaccine ( - 2023-2 5 season) 2024 Depression Screening 05/05/2024 Influenza Vaccine (#1) 2025 HIB Vaccines Aged Out No longer eligi [...] age to complete this topic Meningococcal B Vaccine Aged Out No l onger eligible based on patient's age to complete this topic Pneumococcal Vaccine: Pediat rics (0 to 5 Years) and At-Risk Patients (6 to 49 Years) Aged Out No longer eligible b ased on patient's age to complete this topic RSV Immunization Patients Un rachel 20 months Aged Out No longer eligible b ased on patient's age to complete this topic Varicella Vaccines Aged Out No longer eligible based on patient's age to complete this topic
--- OUTSIDE RECORDS SUMMARY | 2024-11-30 10:15 | XMS_ITS | Clinical Summary ---
Author Organization [employer] Address [address] [place] [address] [address] [place] [address] Care Team Providers Care Customer Solutions Specialist Name Role Phone Heather Marcus MD Primary Care Provide r Allergies No known active allergies Medications * This document contains information received from the source organization and may not represent a complete record from that organization. cetirizine (ZyrTEC) 10 MG tabletIndicatio ns:Seasonal allergic rhinitis due to pollen TAKE 1 TABLET BY MOUTH IF NEEDED EACH DAY FOR ALLERGIES OR RHINITIS. 90 tablet 09/03/19 25 Active Additional Information Patient not taking.Reported on 11/18/2024 albuterol 108 (90 Base) MCG/ACT inhalerIndicati ons:Mild intermittent asthma without complication Inhale 2 puffs every 4 (four) hours if needed for wheezing or shortness of breath. 18 g 1 11/19/19 25 2025 Active Diclofenac Sodium (Voltaren) 1 % gelIndications: Fibromyalgia,Ch ronic left shoulder pain Apply thin layer to affected area BID 60 g 3 11/19/19 25 Active omeprazole (PriLOSEC) [address] capsuleIndicati ons:Heartburn Take 1 capsule (20 mg) by mouth before breakfast. Do not crush or chew. 90 capsule 1 11/19/19 25 Active omeprazole (PriLOSEC) [address] capsuleIndicati ons:Heartburn Take 1 capsule (20 mg) by mouth before breakfast. Do not crush or chew. 90 capsule 1 05/09/19 23 2024 Discontinued(R eorder (will not trigger notification to Pharmacy)) Diclofenac Sodium (Voltaren) 1 % gel Apply thin layer to affected area BID 60 g 3 04/28/20 23 2024 Discontinued(R eorder (will not trigger notification to Pharmacy)) sodium chloride ([place] Nasal [place]) 0.65 % nasal sprayIndication s:Seasonal allergic rhinitis due to pollen 1-2 sprays on each nostril every 2-3 hours as needed for nasal congestion 30 mL 1 09/17/19 23 2024 Discontinued DULoxetine (Cymbalta) [address] capsuleIndicati ons:Fibromyalgi a,Anxiety with depression Take 1 capsule (30 mg) by mouth Once per day. Do not crush or chew. 30 capsule 3 02/05/20 24 2024 Discontinued lidocaine (Lidoderm) 5 % patchIndication s:Chronic left shoulder pain Apply 1 patch topically Once per day. Remove & discard patch within 12 hours or as directed by MD. 30 patch 1 03/30/20 24 2024 Discontinued cyclobenzaprine (Flexeril) 10 MG tablet Take 1 tablet (10 mg) by mouth at bedtime. 30 tablet 06/01/192024 Discontinued meloxicam (Mobic) 15 MG tablet Take 1 tablet (15 mg) by mouth if needed each day for mild pain or moderate pain. 30 tablet 06/01/19 25 2024 Discontinued albuterol 108 (90 Base) MCG/ACT inhaler Inhale 2 puffs every 4 (four) hours if needed for wheezing or shortness of breath. 18 g 1 06/28/19 25 2024 Discontinued(R eorder (will not trigger notification to Pharmacy)) Spacer/Aero-Hol ding Chambers (OptiChamber Dorene) misc 1 each every 4 (four) hours if needed (asthma). 1 each 06/28/19 25 2024 Discontinued methocarbamol (Robaxin) 750 MG tabletIndicatio ns:Acute pain of left shoulder,Neck pain Take 1 tablet (750 mg) by mouth 4 times daily. 40 tablet 2 08/18/19 25 2024 Discontinued meloxicam (Mobic) 15 MG tabletIndicatio ns:Acute pain of left shoulder,Neck pain Take 1 tablet (15 mg) by mouth Once per day. 30 tablet 3 08/18/19 25 2024 Discontinued fluticasone (Flonase) 50 MCG/ACT nasal sprayIndication s:Seasonal allergic rhinitis due to pollen ADMINISTER 1 SPRAY INTO EACH NOSTRIL IF NEEDED EACH DAY FOR RHINITIS OR ALLERGIES. SHAKE GENTLY BEFORE FIRST USE, PRIME PUMP. AFTER USE, CLEAN TIP AND REPLACE 48 mL 10/05/19 25 2024 Discontinued Ketotifen Fumarate 0.035 % solution ADMINISTER 1 DROP INTO AFFECTED EYE(S) IF NEEDED IN THE MORNING AND AT BEDTIME (EYE REDNESS, ITCHING). 30 mL 1 10/20/19 25 2024 Discontinued Active Problems Problem Noted Date Diagnosed Date Overweight (BMI 25.0-29.9) 11/18/2024 Assessment & Plan (11/18/2024 12:03 PM EDT): Extensive counseling about healthy diet and exercise on today I refer patient to radio interference expert Mild intermittent asthma without complication Assessment & Plan (11/18/2024 12:04 PM EDT): Stable continue with same interventions I refill her albuterol inhaler Acute pain of left shoulder 08/17/2024 Assessment & Plan (08/17/2024 4:11 PM EDT): Continue with physical therapy Continue to follow with orthopedics Apply heat on affected area I will prescribe Robaxin as needed and meloxicam 15 mg daily Neck pain 08/17/2024 Encounter for Papanicolaou smear of cervix 06/28 [...] Nausea 02/12/2023 Fibromyalgia 01/14/2023 Assessment & Plan (11/18/2024 12:04 PM EDT): Patient was educated about multidisciplinary approach for her condition, it was advise cardiovascular exercise, maintain hydration, treat anxiety/depression and take medications as directed Patient reports she discontinue duloxetine, she reports she did not feel any changes with medication and she did not like to take it Assessment & Plan (02/05/2024 4:39 PM EDT): [...] of major depressive disorder without prior episode ([facility]) Severe anxiety Patient ready to address current needs Yes Strengths include willing to engage in services PLAN: 1. Follow up with [facility] [place]: Not recommended for follow-up 2. Patient goal is to improve mental health and functionality. 3. Behavioral Recommendations a. Ind. Therapy referral will be submitted b. Use of coping skills as recommended c. [facility] contact number for support. Severe anxiety 01/14/2023 Polyarthralgia 11/19/2022 Chronic fatigue 11/19/2022 Rash 11/19/2022 Numbness and tingling 11/19/2022 Chronic left shoulder pain 11/19/2022 Assessment & Plan (11/18/2024 12:04 PM EDT): Continue to follow-up with orthopedics Diclofenac gel refill Low TSH level 09/23/2018 Encounters Date Type Department Care Team Description 11/18/2024 9:00 AM EDT Office Visit [address] [address] Heather Marcus MD Fibromyalgia (Primary Dx); Heartburn; Chronic left shoulder pain; Overweight (BMI 25.0-29.9); Mild intermittent asthma without complication; Dietary counseling; Exercise counseling 11/18/2024 Travel 11/09/2024 Patient Outreach [facility] [address] [place] [phone] Heather Marcus MD Care Coordination (CHW outreach for SDOH housing search-referral completed ) 11/09/2024 Patient Outreach [address] [phone] Heather Marcus MD 11/09/2024 Patient Outreach [address] [address] Heather Marcus MD Pre-visit Planning ((SDOH screening positive tobacco screening negative) ) 10/18/2024 Refill [facility] [address] [place] [phone] Heather Marcus MD 10/02/2024 Refill [facility] [address] [place] [phone] Heather Marcus MD Seasonal allergic rhinitis due to pollen 09/18/2024 Refill [facility] [address] [place] [phone] Trevor Waite MD 09/02/2024 Refill [facility] [address] [place] [phone] Anjali Fragoso ANP Seasonal allergic rhinitis due to pollen 08/31/2024 Telephone [facility] [address] [place] [phone] Maryuri Elise RN Care Management ([facility]- f/u call) from Last 3 Months Immunizations Immunization Administration Dates Next Due Influenza injectable quadrivalent preservative f ree 02/18/2020,03/02/2019 Social History Tobacco Use Types Packs/Day Years Used Date Smoking Tobacco: Never Passive Smoke Exposure: Current Smokeless Tobacco: Never Tobacco Cessation:Counseling Given: Not [...] housing situation today? I have kamari mason 11/09/[address] you li ve. Do you have problems with any of the following? Lead [place] or Pipes;Pests such as bugs, ants, or mice 11/09/2024 Food Insecurity Answer Date Recorded Within the [...] Access Answer Date Recorded Internet Access Q1 Yes 11/09/2024 Internet Access Q2 I do not want or need it 12/2024 Comments Unknown Sex and Gender Information Value Date Recorded Sex Assigned at Female 03/04/2022 10:36 AM EDT Legal Sex Female 10:36 AM EDT Gender Identity Female 03/04/2022 10:36 AM EDT Sexual Orientation Straight 03/04/2022 10 :36 AM EDT Last Filed Vital Signs Vital Sign Reading Time Taken Comments Blood Pressure 122/84 11/18/2024 9:04 AM EDT Pulse 74 11/18/2024 9:04 AM EDT Temperature 36.4 C (97.6 F) 11/18/2024 9:04 AM EDT Respiratory Rate 16 11/18/2024 9:04 AM EDT Oxygen Saturation 100% 08/17/2024 3:05 PM EDT Inhaled Oxygen Concentration - - Weight 72.7 kg (160 lb 6 oz) 11/18/2024 9:04 AM EDT Height 158.5 cm (5' 2.4 ) 11/18/2024 9:04 AM EDT Body Mass Index 28.96 11/18/2024 9:04 AM EDT Plan of Treatment Upcoming Encounters Date Type Department Care Team (Late st Contact Info) Description 01/20/2025 11:30 AM EDT Telemedicine [facility] [address] [place] [address] Heather Marcus MD [address] [place] [address] Health Maintenance Due Date Last Done Comments Family Planning (PISQ) 2000 HPV Vaccines (1 - 3-dose series) 2000 DTaP/Tdap/Td Vaccines (1 - Tdap) 2004 Hepatitis B Vaccines (1 of 3 - 19+ 3-dose series) 2004 Pneumococcal Vaccine: Pediatrics (0 to 5 Years) and At-Risk Patients (6 to 49) Years (1 of 2 - PCV) 2004 COVID-19 Vaccine ( - 2023-2 5 season) 2024 Influenza Vaccine (#1) 2025 , 03/02/2019 Alcohol/Substance Use Screening 02/04/2025 02/05/2024 Depression Screening 02/04/2025 02/05/2024, 02/05/2024 SDOH Screening 11/09/2025 11/09/2024 Disability Screening 11/18/2025 11/18/2024 Tobacco Screening 11/18/2025 11/18/2024 Cervical Cancer Screening 06/28/2029 HPV/Cotest 06/28/2029 06/28/2024, [...] Procedure Name Priority Date/Time Associated Diagnosis Comments HPV DNA, LOW/HIGH RISK Routine 06/28/2024 10:47 AM EST PAP SMEAR Routine 06/28/2024 10:47 AM EST Encounter for Papanicolaou smear of cervix HEPATITIS C ANTIBODY REFLEX Routine 11/19/2022 10:24 AM EDT HIV ANTIBODY/ANTIGEN ([place] [facility]) Routine 11/19/2022 10:24 AM EDT from Last 3 Months or Most Recently Relevant to Health Maintenance Results * HPV DNA, Low/High Risk (06/28/2024 10:47 AM EST) HPV High Risk Negative Negative [facility] HPV Genotype 16 Negative Negative [facility] HPV Genotype 18 Negative Negative [facility] Comment:HPV testing performe d at [facility] (CLIA#[id number]), [address] [place] [address].Testing for HPV was performed using the Deandra [...] Mcdermott MD LAB BLOOD ORDERABLES Final Result [facility] [address] [place] [phone] * Pap Smear (06/28/2024 10:47 AM EST) Swab 06/28/2024 10:4 7 AM EST 06/29/2024 7:10 AM EST [facility] - 07/01/2024 7:46 AM EST ----- ------- Name: Marina Armendariz Age/Sex: 38/F : 1985 Unit#: [id number] Attend Dr: Heather Marcus MD Re06/28/24 Status: DEP [facility]ch[facility] ----- ------- SPEC : [id number] RECD: 06/29/24 STATUS: GENA RAE NUM: [id number] RENEE: 06/28/24-10[address] [facility] [address]: Heather Marcus MD ENTERED: 06/29/240758 SP TYPE: Pap Smr OTHR DR: ORDERED: Pap Smear Interpretation Satisfactory for evaluation. Negative for intraepithelial lesion or malignancy. HPV High Risk: Negative HPV Genotyping 16: Negative HPV Genotyping 18: Negative Clinical Information LMP: Unknown date Previous PAP test: Unknown date, WNL Material Received ThinPrep-Cervical ----- ------- Signed (signature on file) BalbirHUONG Ventura ([facility]) 07/01/24 0746 ----- ------- END OF REPORT Heather Mcdermott MD LAB CYTOLOGY ORDERABL ES Final Result Performing Organization Address [facility] Co de Phone Number [facility] [address] [place] [address] [phone] * Hepatitis C Antibody Reflex (11/19/2022 10:24 AM EDT) Pathologist [facility] Hepatitis C Antibody Nonreactive Nonreactive [facility] Comment:Antibodies to HCV no t detected; does not exclude early acuteHCV infection. 11/19/2022 10:2 4 AM EDT 11/19/2022 11:33 AM EDT [facility] External Provider LAB BLO OD ORDERABLES Final Result Performing Organization Address [facility] Co de Phone Number [facility] [address] [place] [address] [phone] * HIV Ab/Ag (LEXIS WONG) (11/19/2022 10:24 AM EDT) Pathologist [facility] HIV AB/AG Nonreactive Nonreactive [facility] Comment:HIV-1 p24 Ag and/or HIV-1/HIV-2 Ab not detected.A test result that is nonreactive does not exclude thepossibility of exposure to or infection with HIV-1 and/orHIV-2. Nonreactive results in this assay for individualswith prior exposure to HIV-1 and/or HIV-2 may be due toantigen and antibody levels that are below the limit ofdetection of this assay.[employer] HIV Ag/Ab Combo assay result andsupplemental assay results should be interpreted inconjunction with the patient's clinical presentation,history and other laboratory results. If the results areinconsistent with clinical evidence, additional testing issuggested to confirm the result. 11/19/2022 10:2 4 AM EDT 11/19/2022 11:33 AM EDT [facility] External Provider LAB BLO OD ORDERABLES Final Result [facility] [address] [place] [phone] from Last 3 Months or Most Recently Relevant to Health Maintenance Insurance [facility] C[employer] [facility] [address] [place] [address] C3 [employer]CIAL Care Teams Customer Solutions Specialist Relationship Specialty Start Date End Date Heather Marcus MD [address] [place] [address] [phone] PCP - General Internal Medicine 11/12/22
[2024-11-30 11:16] LABS: MANUAL DIFF FLAG NO
[2024-11-30 11:32] LABS: Hematocrit 41.0 % (37.0-47.0); Hemoglobin 14.4 g/dl (12.0-16.0); Imm Gran Abs Auto 0.01 X10*3/uL (0.00-0.03); Imm Gran Pct Auto 0.1 % (0.0-0.4); Lymphocytes Absolute Auto 2.7 X10*3/uL (1.2-4.9); Mean Corpuscular HGB Conc 35.1 g/dl (31.0-35.0); Mean Corpuscular Hemoglobin 29.4 pg (27.0-33.0); Mean Corpuscular Volume 83.7 fL (80.0-98.0); NRBC Abs Auto 0.000 X10*3/uL (0.0-0.012); NRBC Pct Auto 0.0 /100WBC (0.0-0.2); Platelet Count 310 X10*3/uL (160-400); Red Blood Count 4.90 X10*6/uL (4.20-5.50); White Blood Count 7.9 X10*3/uL (4.8-10.8)
[2024-11-30 11:42] LABS: Hemoglobin A1C 112.1046 umol/L; Total Hemoglobin (HGBA1C) 3733.0754 umol/L
[2024-11-30 11:47] LABS: Alanine Aminotransferase 12 U/L (0-31); Albumin Level 4.4 g/dL (3.5-5.0); Alkaline Phosphatase 54 U/L (39-117); Anion Gap 9 (12-20); Aspartate Amino Transferase 18 U/L (5-31); Blood Urea Nitrogen 17 mg/dL (9-16); Calcium 9.0 mg/dL (8.4-10.2); Carbon Dioxide 25 mmol/L (22-29); Chloride 108 mmol/L (96-108); Cholesterol 194 mg/dL (<200); Estimated Glomerular Filt Rate > 60; HDL Cholesterol 51 mg/dL (>40); Potassium 4.1 mmol/L (3.3-5.1); Sodium 138 mmol/L (135-145); Total Protein 7.2 g/dL (6.5-8.0); Triglycerides 105 mg/dL (<150)
[2024-11-30 12:08] LABS: HBS Num1 104.01 mIU/mL (0-7.99); HBc Num1 0.06 S/CO (0.00-0.79); HBsAGNum1 0.46 S/CO (0.00-0.99); HIV Num 1 0.05 S/CO (0.00-0.99); Hepatitis B Surface Antigen Negative (Negative); ~HepC Num1 0.11 S/CO (0.00-0.79); ~Hepatitis B Surface Antibody REACTIVE (Nonreactive); ~Hepatitis C Antibody Nonreactive (Nonreactive)
== END 2024-11-30 09:41 | disposition home or self-care (01) ==
LOC: HO.HHCL 09:40
PROVIDERS: PCP Internal Medicine; Visit Provider Internal Medicine
DX: M79.7 Fibromyalgia (principal); E66.3 Overweight; Z11.59 Encounter for screening for other viral diseases; Z11.4 Encounter for screening for human immunodeficiency virus [HIV]
CPT/HCPCS: 36415; 80053; 80061; 82306; 83036; 84443; 85025; 86704; 86706; 86803; 87340; 87389